=== PATIENT | male | born 1985 | race Caucasian/White ===

== ENCOUNTER 2018-04-03 03:05 | Emergency (ER) | payer SELFPAY ==
[~2018-04-03] VITALS: Ht 170.2 cm; Wt 77.1 kg
--- NOTE | 2018-04-03 03:29 | PHYS DOC ---
Past Medical History Past Medical History: GERD Past Surgical History: No Surgical History Alcohol Use: Occasionally Drug Use: None Adult General Chief Complaint Chief Complaint: CHEST PAIN HPI HPI Patient is a 32 year old male who presents with chest pain center of the chest for the last 2 days, waxing and waning gets worse for 2 hours and then better for 2 hours worse with coughing and deep breathing. Nonradiating associated with her recent URI with he says cough and sinus congestion using Sudafed for relief of those symptoms no fever that he knows of does not usually get chest pain like this. Symptoms are also worse with smoking his trying to quit. No other medical history symptoms are slowly worsening with time Review of Systems Review of Systems Constitutional: Denies fever or chills [] Cardiovascular: No additional information not addressed in HPI [] GI: Denies abdominal pain, nausea, vomiting, bloody stools or diarrhea [] : Denies dysuria or hematuria [] Neurologic: Denies headache, focal weakness or sensory changes [] Endocrine: Denies polyuria or polydipsia [] All other systems were reviewed and found to be within normal limits, except as documented in this note. Current Medications Current Medications Current Medications Medications (Trade) Dose Ordered Sig/Efrain Start Time Stop Time Status Last Admin Dose Admin Albuterol/ Ipratropium (Duoneb) 3 ml 1X ONCE 04/03/18 05:30 04/03/18 05:31 Aspirin (Children'S Aspirin) 324 mg 1X ONCE 04/03/18 04:00 04/03/18 04:01 DC 04/03/18 04:04 324 MG Doxycycline Hyclate (Vibra-Tab) 100 mg 1X ONCE 04/03/18 04:30 04/03/18 04:31 DC 04/03/18 04:44 100 MG Ketorolac Tromethamine (Toradol 15mg Vial) 15 mg 1X ONCE 04/03/18 04:30 04/03/18 04:31 DC 04/03/18 04:44 15 MG Allergies Allergies Allergies Coded Allergies Type Severity Reaction Last Updated Verified No Known Drug Allergies 03/22/14 No Physical Exam Physical Exam Constitutional: Well developed, well nourished, no acute distress, non-toxic appearance. [] HENT: Normocephalic, atraumatic, bilateral external ears normal, oropharynx moist, no oral exudates, nose normal. [] Eyes: PERRLA, EOMI, conjunctiva normal, no discharge. [] Neck: Normal range of motion, no tenderness, supple, no stridor. [] Cardiovascular:Heart rate regular rhythm, no murmur [] Lungs & Thorax: Bilateral breath sounds clear to auscultation but prolonged expirator phase []there is reproducible chest wall tenderness to palpation noted. Abdomen: Bowel sounds normal, soft, no tenderness, no masses, no pulsatile masses. [] Skin: Warm, dry, no erythema, no rash. [] Back: No tenderness, no CVA tenderness. [] Extremities: No tenderness, no cyanosis, no clubbing, ROM intact, no edema. [] Neurologic: Alert and oriented X 3, normal motor function, normal sensory function, no focal deficits noted. [] Psychologic: Affect normal, judgement normal, mood normal. [] Current Patient Data Vital Signs Vital Signs Date Time Temp Pulse Resp B/P (MAP) Pulse Ox O2 Delivery O2 Flow Rate FiO2 04/03/18 03:43 99 Room Air 04/03/18 03:05 99.0 103 16 124/80 (95) 99.0 Lab Values Laboratory Tests Test 04/03/18 03:40 04/03/18 04:21 White Blood Count 13.4 x10^3/uL (4.0-11.0) H Red Blood Count 5.31 x10^6/uL (4.30-5.70) Hemoglobin 16.3 g/dL (13.0-17.5) Hematocrit 47.1 % (39.0-53.0) Mean Corpuscular Volume 89 fL (79-100) Mean Corpuscular Hemoglobin 31 pg (25-35) Mean Corpuscular Hemoglobin Concent 35 g/dL (31-37) Red Cell Distribution Width 15.3 % (11.5-14.5) H Platelet Count 231 x10^3/uL (140-400) Neutrophils (%) (Auto) 75 % (31-73) H Lymphocytes (%) (Auto) 14 % (24-48) L Monocytes (%) (Auto) 9 % (0-9) Eosinophils (%) (Auto) 2 % (0-3) Basophils (%) (Auto) 1 % (0-3) Neutrophils # (Auto) 10.0 x10^3uL (1.8-7.7) H Lymphocytes # (Auto) 1.9 x10^3/uL (1.0-4.8) Monocytes # (Auto) 1.2 x10^3/uL (0.0-1.1) H Eosinophils # (Auto) 0.2 x10^3/uL (0.0-0.7) Basophils # (Auto) 0.1 x10^3/uL (0.0-0.2) Prothrombin Time 13.1 SEC (11.7-14.0) Prothrombin Time INR 1.0 (0.8-1.1) D-Dimer (Bea) 0.35 ug/mlFEU (0.00-0.50) Sodium Level 137 mmol/L (136-145) Potassium Level 3.3 mmol/L (3.5-5.1) L Chloride Level 99 mmol/L (98-107) Carbon Dioxide Level 26 mmol/L (21-32) Anion Gap 12 (6-14) Blood Urea Nitrogen 11 mg/dL (8-26) Creatinine 1.2 mg/dL (0.7-1.3) Estimated GFR (Cockcroft-Gault) 70.2 BUN/Creatinine Ratio 9 (6-20) Glucose Level 88 mg/dL (70-99) Calcium Level 9.7 mg/dL (8.5-10.1) Total Bilirubin 0.6 mg/dL (0.2-1.0) Aspartate Amino Transferase (AST) 24 U/L (15-37) Alanine Aminotransferase (ALT) 59 U/L (16-63) Alkaline Phosphatase 75 U/L (46-116) Troponin I Quantitative < 0.017 ng/mL (0.000-0.055) BU-Qkb-V-Type Natriuretic Peptide 30 pg/mL (0-124) Total Protein 8.6 g/dL (6.4-8.2) H Albumin 4.5 g/dL (3.4-5.0) Albumin/Globulin Ratio 1.1 (1.0-1.7) Laboratory Tests 04/03/18 03:40 Laboratory Tests 04/03/18 04:21 EKG EKG [] Interpretation Time: EKG shows a normal sinus rhythm with rate of 97 no ischemic changes noted no STEMI normal intervals interpreted by me time of encounter Radiology/Procedures Radiology/Procedures [] Impressions: suspect rml pna Course & Med Decision Making Course & Med Decision Making Pertinent Labs and Imaging studies reviewed. (See chart for details) []32-year-old male history smoker presenting with chest pain pleuritic in nature mild tachycardia recent URI differential PE pneumonia or bronchitis musculoskeletal chest pain . EKG shows no ischemia lab work is essentially unremarkable except for a mild leukocytosis I suspect there may be a mild pneumonia on the chest x-ray he is satting well. He did seem to improve somewhat with albuterol therapy. Prescription for doxycycline and albuterol inhaler was given patient was advised and the importance of smoking cessation and return here if not improving as expected the next few days. Dragon Disclaimer Dragon Disclaimer This electronic medical record was generated, in whole or in part, using a voice recognition dictation system. Departure Departure Impression: Primary Impression: Pneumonia Disposition: HOME, SELF-CARE Condition: STABLE Referrals: ABIODUN WHELAN (PCP) Scripts Albuterol Sulfate (PROAIR HFA INHALER) 8.5 Gm Hfa.aer.ad 1 PUFF INH PRN Q6HRS PRN for SHORTNESS OF BREATH, #1 INHALER 0 Refills Prov: ABBY YA MD 04/03/18 Doxycycline Hyclate (DOXYCYCLINE HYCLATE) 100 Mg Capsule 1 CAP PO BID, #20 CAP Prov: ABBY YA MD 04/03/18 ABBY YA MD Apr 03, 2018 03:29
[2018-04-03 03:53] LABS: BASO # 0.1 x10^3/uL (0.0-0.2); BASO % 1 % (0-3); EOS # 0.2 x10^3/uL (0.0-0.7); EOS % 2 % (0-3); HEMATOCRIT 47.1 % (39.0-53.0); HEMOGLOBIN 16.3 g/dL (13.0-17.5); LYMPH # 1.9 x10^3/uL (1.0-4.8); LYMPH % 14 % (24-48); MEAN CORPUSCULAR HEMOGLOBIN 31 pg (25-35); MEAN CORPUSCULAR HGB CONC 35 g/dL (31-37); MEAN CORPUSCULAR VOLUME 89 fL (79-100); MONO # 1.2 x10^3/uL (0.0-1.1); MONO % 9 % (0-9); NEUT % 75 % (31-73); PLATELET COUNT 231 x10^3/uL (140-400); RED BLOOD COUNT 5.31 x10^6/uL (4.30-5.70); RED CELL DISTRIBUTION WIDTH 15.3 % (11.5-14.5); WHITE BLOOD COUNT 13.4 x10^3/uL (4.0-11.0)
[2018-04-03] MEDS ORDERED: IPRATRPIUM/ALBUTEROL 0.5/2.5MG 3 ML NEBU. NEB ONE ×2 (04:00→05:30)
[2018-04-03] MEDS ORDERED: ASPIRIN CHEWABLE 81 MG TABLET. PO ONE (04:00)
[2018-04-03] MEDS ORDERED: KETOROLAC 15 MG/ML VIAL. IV ONE (04:30)
[2018-04-03] MEDS ORDERED: DOXYCYCLINE HYCLATE 100 MG TABLET PO ONE (04:30)
--- NOTE | 2018-04-03 04:40 | EKG ---
[facility] [address] [place] [address] Test Date: 2018-04-03 Test Time: 03:14:32 Pat Name: DEEPAK ZHOU Department: Room: Gender: Male [employer]: : 1985 Requested By: ABBY YA Order Number: [id number] Reading MD: Rafael Florez MD Measurements Intervals [place] Rate: 97 P: 55 WI: 150 QRS: 46 QRSD: 92 T: 25 QT: 314 QTc: 403 Interpretive Statements SINUS RHYTHM Electronically Signed On 04-03-2018 8:15:44 CDT by Rafael Florez MD
[2018-04-03 04:45] LABS: PROTHROMBIN TIME PATIENT 13.1 SEC (11.7-14.0)
[2018-04-03 04:46] LABS: CALCIUM 9.7 mg/dL (8.5-10.1); CREATININE 1.2 mg/dL (0.7-1.3); GFR 70.2; POTASSIUM 3.3 mmol/L (3.5-5.1)
[2018-04-03 04:48] LABS: D-DIMER 0.35 ug/mlFEU (0.00-0.50)
[2018-04-03 04:52] LABS: ALBUMIN 4.5 g/dL (3.4-5.0); ALBUMIN/GLOBULIN RATIO 1.1 (1.0-1.7); TOTAL BILIRUBIN 0.6 mg/dL (0.2-1.0); TOTAL PROTEIN 8.6 g/dL (6.4-8.2)
[2018-04-03] MEDS ORDERED: PROAIR HFA8.5 GM INH (04:54)
[2018-04-03] MEDS ORDERED: DOXY100C2 PO (04:54)
[2018-04-03 05:14] VITALS: BP 125/78
[2018-04-03] MEDS ORDERED: GUAI118L13 PO (05:51)
--- NOTE | 2018-04-03 08:05 | RAD ---
Portable chest, 04/03/2018: HISTORY: Chest pain The heart size and pulmonary vascularity are normal. There is an opacity in the medial segment of the right middle lobe obscuring the right heart border. The appearance suggests pneumonia or atelectasis. The left lung is clear. There is no evidence of pleural fluid. IMPRESSION: Right middle lobe infiltrate suggesting pneumonia. Electronically signed by: Oswaldo Ayoub MD (04/03/2018 8:02 AM) [facility]
== END 2018-04-03 05:55 | disposition home or self-care (01) ==
LOC: ER 03:05
DX: J18.9 Pneumonia, unspecified organism (principal); R00.0 Tachycardia, unspecified; F17.200 Nicotine dependence, unspecified, uncomplicated; K21.9 Gastro-esophageal reflux disease without esophagitis
CPT/HCPCS: 36415; 71045; 80053; 83880; 84484; 85025; 85379; 85610; 93005; 94640; 96374; 99285; J1885; J7620